=== PATIENT | male | born 1995 | race Asian ===

== ENCOUNTER 2020-10-12 09:17 | Emergency (ER) | payer OTHER ==
[~2020-10-12] VITALS: Ht 177.8 cm; Wt 89.4 kg
[2020-10-12 09:23] VITALS: Ht 177.8 cm; Wt 89.4 kg
[2020-10-12 12:17] VITALS: BP 124/73
== END 2020-10-12 12:17 | disposition home or self-care (01) ==
LOC: ED 09:17
DX: S05.02XA Injury of conjunctiva and corneal abrasion without foreign body, left eye, initial encounter (principal); X58.XXXA Exposure to other specified factors, initial encounter; Y93.89 Activity, other specified; Y92.89 Other specified places as the place of occurrence of the external cause; Y99.8 Other external cause status